=== PATIENT | female | born 1945 | race African-American/Black ===

== ENCOUNTER → 2017-03-22 | Outpatient (CLI) | payer MEDICARE, BC ==
[~2017-03-22] MED LIST: AMLO5TAB4 PO; ASPI-482 PO; CETI10CA PO; FLUT12HF2 IH; FLUT16SP2 NS; TRIA1CAP3 PO; albuterol INH
--- NOTE | 2017-03-22 09:46 | KCIC ---
Indication: Osteoporosis and postmenopausal. Bone mineral analysis of the lumbar spine and left hip was performed. The bone mineral density of the lumbar spine from L1 to L4 is 0.909 with a T score of -1.3. The bone mineral density of the left hip is 0.723 with a T score of -1.8. IMPRESSION: Osteopenia of the lumbar spine and left hip. Electronically signed by: Sylvester Glez MD (03/22/2017 9:43 AM) [id number]
== END | disposition home or self-care (01) ==
LOC: KCIC MAMMO 07:49
PROVIDERS: ATTEND Family Medicine
DX: Z12.31 Encounter for screening mammogram for malignant neoplasm of breast (principal); Z13.820 Encounter for screening for osteoporosis; Z78.0 Asymptomatic menopausal state; M85.88 Other specified disorders of bone density and structure, other site
CPT/HCPCS: 77080; G0202; 77067

== ENCOUNTER 2018-02-13 18:16 | Emergency (ER) | payer MEDICARE, BC ==
[2018-02-13] MEDS: HYDROcodone/APAP 5/325MG 1 TAB TABLET PO (19:57)
== END 2018-02-13 20:04 | disposition home or self-care (01) ==
LOC: ER 18:16
DX: S99.921A Unspecified injury of right foot, initial encounter (principal); M77.31 Calcaneal spur, right foot; J45.909 Unspecified asthma, uncomplicated; E78.00 Pure hypercholesterolemia, unspecified; I10 Essential (primary) hypertension; Z90.710 Acquired absence of both cervix and uterus; Z88.5 Allergy status to narcotic agent; Z88.8 Allergy status to other drugs, medicaments and biological substances; Z88.1 Allergy status to other antibiotic agents; Z91.041 Radiographic dye allergy status; X50.9XXA Other and unspecified overexertion or strenuous movements or postures, initial encounter; Y93.89 Activity, other specified; Y99.8 Other external cause status; Y92.89 Other specified places as the place of occurrence of the external cause
CPT/HCPCS: 73630; 99284

== ENCOUNTER → 2018-03-07 | Outpatient (CLI) | payer MEDICARE, BC | END | disposition home or self-care (01) | LOC: KCIC CT 08:48 | DX: M79.671 Pain in right foot (principal); I10 Essential (primary) hypertension; E78.5 Hyperlipidemia, unspecified; E78.00 Pure hypercholesterolemia, unspecified | CPT/HCPCS: 73700 ==

== ENCOUNTER → 2018-03-23 | Outpatient (CLI) | payer MEDICARE, BC | END | disposition home or self-care (01) | LOC: KCIC MAMMO 08:47 | DX: Z12.31 Encounter for screening mammogram for malignant neoplasm of breast (principal) | CPT/HCPCS: 77063; 77067 ==

== ENCOUNTER 2018-04-06 10:17 | Emergency (ER) | payer MEDICARE, BC | END 2018-04-06 11:45 | disposition home or self-care (01) | LOC: ER 11:45 | DX: L03.115 Cellulitis of right lower limb (principal); E78.00 Pure hypercholesterolemia, unspecified; I10 Essential (primary) hypertension; J45.909 Unspecified asthma, uncomplicated; Z88.5 Allergy status to narcotic agent; Z88.8 Allergy status to other drugs, medicaments and biological substances; Z88.1 Allergy status to other antibiotic agents; Z91.041 Radiographic dye allergy status | CPT/HCPCS: 99283 ==

== ENCOUNTER → 2019-03-29 | Outpatient (CLI) | payer MEDICARE, BC ==
[2018-04-06 10:30] VITALS: BP 132/68
[~2019-03-29] MED LIST changes: +SULF1TAB24 PO
--- NOTE | 2019-03-29 14:31 | KCIC ---
BILATERAL SCREENING MAMMOGRAM, 3-D History: Routine screening. Comparison: Bilateral mammogram March 23, 2018. Technique: MLO and CC digital tomosynthesis (3D) images obtained. Radiologist reviewed these images on dedicated workstation. Findings: Breast Tissue Density D :The breasts are extremely dense, which lowers the sensitivity of mammography. Multiple bilateral benign calcifications are redemonstrated, some have mildly increased. Stable probable intramammary lymph node upper-outer right breast at anterior depth. There are no dominant masses, suspicious microcalcifications, or architectural distortion. IMPRESSION: No mammographic evidence of malignancy. Recommend routine screening. BI-RADS category 2: Benign findings. The images were reviewed with computer-aided detection. Patient information is entered into reminder system with a target due date for the next screening mammogram. Mammography is the most sensitive method for finding small breast cancers, but it does not detect them all and is not a substitute for careful clinical examination. A negative mammogram does not negate a clinically suspicious finding and should not result in delay in biopsying a clinically suspicious abnormality. "Our facility is accredited by the [employer] Mammography [employer]." Electronically signed by: Jose Roberto Thorpe MD (03/29/2019 2:29 PM) [id number]
== END | disposition home or self-care (01) ==
LOC: KCIC MAMMO 10:12
PROVIDERS: ATTEND Family Medicine
DX: Z12.31 Encounter for screening mammogram for malignant neoplasm of breast (principal)
CPT/HCPCS: 77063; 77067

== ENCOUNTER → 2020-03-30 | Outpatient (CLI) | payer MEDICARE, BC ==
[2018-04-06 10:30] VITALS: BP 132/68
--- NOTE | 2020-03-30 19:06 | KCIC ---
Bilateral digital screening mammograms with 3-D tomosynthesis: Reason for examination: Routine screening. Comparison is made to previous studies dated back to 06/24/2015. Bilateral mammograms in CC and oblique projections were obtained with 2-D imaging and 3-D tomosynthesis imaging on a Siemens Inspiration unit and reviewed on the workstation. Interpretation was made with the benefit of CAD. The skin and nipples show no abnormalities. No abnormal axillary lymph nodes are seen. The breast parenchyma is extremely dense. (Breast density: Category D.) There appears to be some architectural distortion anteriorly at approximately the 12:00 position of the right breast. Recommend further evaluation with ultrasound. There are no other dominant masses, suspicious calcifications or architectural distortion. Benign scattered and clustered calcifications are present. Impression: Architectural distortion seen anteriorly in the 12:00 position of the right breast. Recommend further evaluation with ultrasound. Your patient's mammogram demonstrates that she has dense breast tissue (breast density category C or D), which could hide abnormalities, and if she has other risk factors for breast cancer that have been identified, she might benefit from supplemental screening tests that may be suggested by you as her ordering physician. Dense breast tissue, in and of itself, is a relatively common condition. Therefore, this information is not provided to cause undue concern, but rather to raise your awareness and to promote discussion with your patient regarding the presence of other risk factors, in addition to dense breast tissue. Your patient's mammography results will be sent to her. BI-RAD Category 0: Incomplete. Needs additional imaging evaluation. "Our facility is accredited by the [employer] Mammography [employer]." This patient's information has been entered into a reminder system for the patient to be notified with the results of her examination and a target date for the next mammogram. Electronically signed by: Kacey Zuñiga MD (03/30/2020 7:03 PM) [id number]
== END | disposition home or self-care (01) ==
LOC: KCIC MAMMO 11:00
PROVIDERS: ATTEND Family Medicine
DX: Z12.31 Encounter for screening mammogram for malignant neoplasm of breast (principal); N64.89 Other specified disorders of breast
CPT/HCPCS: 77063; 77067

== ENCOUNTER → 2020-04-06 | Outpatient (CLI) | payer MEDICARE, BC ==
[2018-04-06 10:30] VITALS: BP 132/68
--- NOTE | 2020-04-06 13:21 | RAD ---
Examination: Limited right breast ultrasound. INDICATION: 74-year-old woman recalled from screening for architectural distortion in the anterior right 12:00 breast. COMPARISON: 03/30/2020, 03/29/2019, 03/23/2018 and 06/24/2015 screening mammograms. TECHNIQUE: Grayscale and color Doppler imaging of the right breast targeting the 12:00 position and including the subareolar to posterior superior right breast along the 12 to 1:00 position was performed. Sonographic survey of the right axilla was also performed. FINDINGS: During sonographic evaluation of the right breast, the technologist observed a surgical scar which the patient confirms represents a biopsy scar from the early . Most of her previous screening mammograms have been with 2-D technique and since she is heterogeneously dense, the postsurgical architectural variation/distortion is more apparent on the more recent 3-D screening mammograms, including the most recent one. Targeted ultrasound of the right breast revealed subtle sonographic architectural distortion that matches the mammographic finding recalled from screening. No fluid collection, nipple retraction or skin thickening. A sonographically benign 2 mm nodule in the subcutaneous fat compatible with an oil cyst is incidentally noted. IMPRESSION: Sonographically benign findings in the right breast, compatible with previous surgical scar. No findings suspicious for malignancy. Recommend return to routine screening next due in one year. BI-RADS Category 2 Benign
== END | disposition home or self-care (01) ==
LOC: US 11:13
PROVIDERS: ATTEND Family Medicine
DX: R92.8 Other abnormal and inconclusive findings on diagnostic imaging of breast (principal)
CPT/HCPCS: 76641

== ENCOUNTER → 2021-04-07 | Outpatient (CLI) | payer MEDICARE, BC ==
[2018-04-06 10:30] VITALS: BP 132/68
--- NOTE | 2021-04-07 12:53 | KCIC ---
EXAM: Bilateral digital screening mammogram with tomosynthesis. HISTORY: 75-year-old female presents for screening mammography. The patient has a history of prior be nign right breast excisional biopsy. TECHNIQUE: Full-field digital craniocaudal and mediolateral oblique 2D and 3D tomosynthesis images of both breasts are obtained for evaluation. Computer aided detection was applied. COMPARISON: 03/30/2020 and 03/29/2019 BREAST PARENCHYMAL DENSITY: Level D - Extremely dense. FINDINGS: There is no new suspicious mass, microcalcification or region of architectural distortion. There is stable architectural distortion within the anterior superior medial right breast due to exci sional biopsy scarring. There are stable areas of nodularity and asymmetry within both breasts. There are benign calcifications. IMPRESSION: BI-RADS Category 2: Benign finding(s). RECOMMENDATION: Annual mammography is recommended. If your mammogram demonstrates that you have dense breast tissue, which could hide abnormalities, and if you have other risk factors for breast cancer that have been identified, you might benefit from s upplemental screening tests that may be suggested by your ordering physician. Dense breast tissue, i n and of itself, is a relatively common condition. This information is not provided to cause undue c oncern, but rather to raise your awareness and to promote discussion with your physician regarding th e presence of other risk factors, in addition to dense breast tissue. A report of your mammography re sults will be sent to you and your physician. You should contact your physician if you have any ques tions or concerns regarding this report. Mammography is a sensitive method for finding small breast cancers, but it does not detect them all a nd is not a substitute for careful clinical examination. A negative mammogram does not negate a clin ically suspicious finding and should not result in delay in biopsying a clinically suspicious abnorma lity. PQRS compliance statement - Patient information was entered into a reminder system with a target due date for the next mammogram. "Our facility is accredited by the [employer] Mammography [employer]." Electronically signed by: Teodora Mckee MD (04/07/2021 12:51 PM) [id number]
== END ==
LOC: KCIC MAMMO 11:01
PROVIDERS: ATTEND Family Medicine
DX: Z12.31 Encounter for screening mammogram for malignant neoplasm of breast (principal); R92.1 Mammographic calcification found on diagnostic imaging of breast
CPT/HCPCS: 77063; 77067